=== PATIENT | male | born 1950 | race African-American/Black ===

== ENCOUNTER 2022-11-20 11:33 | Emergency (ER) | payer MEDICARE | END 2022-11-20 13:19 | disposition home or self-care (01) | LOC: MADERS 11:33 | DX: R73.9 Hyperglycemia, unspecified (principal); E78.00 Pure hypercholesterolemia, unspecified; I10 Essential (primary) hypertension; Z79.84 Long term (current) use of oral hypoglycemic drugs | CPT/HCPCS: 36416; 99284 ==

== ENCOUNTER 2023-02-18 19:21 | Emergency (ER) | payer MEDICARE ==
[2023-02-18] MEDS ORDERED: Acetaminophen 500 MG TAB ONE (19:43)
[2023-02-18 20:16] LABS: Anisocytosis SLIGHT = 6-15 cells (100X) (0-5/hpf); Eosinophils 1 % (0-10); Lymphocytes 14 % (21-51); MDiff Complete? YES; Mean Corpuscular HGB CONC 30.1 g/dL (32.0-36.0); Mean Corpuscular Hemoglobin 27.8 pg (27.0-31.0); Mean Corpuscular Volume 92.5 fl (78.0-98.0); Monocytes 2 % (0-10); Neutrophil 83 % (42-75); Ovalocytes SLIGHT = 2-5 cells (100X) (0-1/hpf); Platelet Count 224 10x3/uL (130-400); Platelet Morphology Comment Appears Adequate; RBC Distribution Width 16.3 % (11.5-14.5); Red Blood Cell (RBC) Count 4.33 mill/uL (4.70-6.10); Tear Drops SLIGHT = 2-5 cells (100X) (0-1/hpf); White Blood Cell (WBC) Count 8.4 10x3/uL (4.8-10.8)
[2023-02-18 20:25] LABS: ALT (SGPT) 9 U/L (8-55); AST (SGOT) 20 U/L (5-34); Albumin 3.6 g/dL (3.4-4.8); Alkaline Phosphatase 66 U/L (40-110); Anion Gap 21 mmol/L (10-20); BUN (Urea Nitrogen) 11 mg/dL (8.4-25.7); Bilirubin, Total 0.7 mg/dL (0.2-1.2); Calc. Creatinine Clearance 0 mL/min (70-130); Carbon Dioxide 19 mmol/L (23-31); Chloride 101 mmol/L (98-107); Estimated GFR 44; Globulin 3.2 g/dL (2.4-3.5); Glucose 231 mg/dL (83-110); Magnesium 1.7 mg/dL (1.6-2.6); Potassium 3.8 mmol/L (3.5-5.1); Protein, Total 6.8 g/dL (5.8-8.1); Sodium 137 mmol/L (136-145)
[2023-02-18] MEDS ORDERED: Piperacillin/Tazobactam 4.5 GM VIAL ONE (20:56)
[2023-02-18] MEDS ORDERED: Sodium Chloride 0.9% 100 ML ONE (20:56)
[2023-02-18] MEDS ORDERED: Vancomycin 1 GM VIAL ONE (21:54)
[2023-02-18] MEDS ORDERED: Sodium Chloride 0.9% 250 ML 250 ML ONE ×2 (21:54→21:57)
[2023-02-18 22:24] LABS: Bilirubin Negative (Negative); Blood, Urine Negative (Negative); Clarity Clear (Clear); Glucose, Urine (Dipstick) >=1000 mg/dL (Negative); Ketone, Urine Negative (Negative); Leukocyte Negative (Negative); Nitrite Negative (Negative); Protein, Urine (Dipstick) Negative (Neg-Trace); Urobilinogen 0.2 mg/dL (Less than 2); pH, Urine 6.5 (5.0-9.0)
[2023-02-18 22:28] LABS: SARS-CoV-2 NAA Rapid Test Not Detected (NotDetected)
[2023-02-19 00:50] LABS: Lactic Acid 1.9 mmol/L (0.5-2.2)
[2023-02-19] MEDS ORDERED: Sodium Chloride 0.9% 100 ML ONE ×3 (02:41→15:26)
[2023-02-19] MEDS ORDERED: Piperacillin/Tazobactam 4.5 GM VIAL ONE ×3 (02:41→15:26)
[2023-02-19] MEDS ORDERED: Ondansetron PF 4 MG/2 ML Vial ONE (07:48)
[2023-02-19] MEDS ORDERED: Acetaminophen 500 MG TAB ONE ×2 (07:48→17:31)
[2023-02-19] MEDS ORDERED: Vancomycin 1 GM VIAL ONE (09:15)
[2023-02-19] MEDS ORDERED: Sodium Chloride 0.9% 250 ML 250 ML ONE (09:15)
[2023-02-19] MEDS ORDERED: Sodium Chloride 0.9% 500 ML ONE ×2 (13:18→19:13)
[2023-02-19] MEDS ORDERED: Sodium Chloride 0.9% 1,000 ML ONE ×2 (17:24→19:13)
== END 2023-02-19 19:58 | disposition short-term general hospital (02) ==
LOC: MADERS 19:21
DX: J18.9 Pneumonia, unspecified organism (principal); N17.9 Acute kidney failure, unspecified; I10 Essential (primary) hypertension; E11.40 Type 2 diabetes mellitus with diabetic neuropathy, unspecified; E78.00 Pure hypercholesterolemia, unspecified; Z20.822 Contact with and (suspected) exposure to COVID-19; Z85.118 Personal history of other malignant neoplasm of bronchus and lung; Z79.84 Long term (current) use of oral hypoglycemic drugs; Z79.899 Other long term (current) drug therapy
CPT/HCPCS: 71045; 80053; 81003; 82962; 83605; 83735; 83880; 84484; 85025; 87040; 87086; 87804 ×2; 87807; 93005; 94760; U0002; 36416; 96361; 96365; 96366; 96367; J2405; J2543; J3370; J3490; J7030; J7050